=== PATIENT | female | born 1955 | race Caucasian/White ===

== ENCOUNTER 2016-11-12 10:51 | Emergency (ER) | payer OTHER ==
[~2016-11-12] VITALS: Ht 162.6 cm; Wt 70.7 kg
[2016-11-12] MEDS ORDERED: XANAX0.25 MG PO (11:01)
[2016-11-12] MEDS ORDERED: LISINOPRIL10 MG PO (11:01)
[2016-11-12] MEDS ORDERED: TRICOR145 MG PO (11:02)
[2016-11-12] MEDS ORDERED: CALCIUM500 M4 PO (11:02)
[2016-11-12] MEDS ORDERED: PREVACID30 MG PO (11:02)
[2016-11-12] MEDS ORDERED: LEXAPRO10 MG PO (11:02)
[2016-11-12] MEDS ORDERED: MULTIPLE VITAM1 EACH PO (11:03)
[2016-11-12 11:19] LABS: EOSINOPHIL (%) 0.4 % (0-5); HEMATOCRIT 43.5 % (36.0-46.0); IMMATURE GRANULOCYTE (%) 0.6 % (0.0-0.7); INSTRUMENT ABS NEUTROPHIL CT 5.3 K/uL; MCH 33.3 PG (29.0-34.0); MCHC 34.5 G/DL (30.0-36.0); MCV 96.5 FL (83-99); MEAN PLAT.VOLUME 9.4 uM^3 (9.5-12.4); MONOCYTE (%) 5.4 % (3-12); MONOCYTE COUNT 0.4 K/uL (0-0.8); NEUTROPHIL (%) 78.1 % (45-76); NEUTROPHIL COUNT 5.3 K/uL (1.8-6.4); PLATELET COUNT 195 K/uL (156-360); RBC DIS.WIDTH-CV 11.6 % (11.8-14.6); RBC DIS.WIDTH-SD 41.4 % (39-53); RED BLOOD COUNT 4.51 M/uL (3.80-5.20); WHITE BLOOD COUNT 6.8 K/uL (4.1-10.2)
[2016-11-12 11:33] LABS: CHLORIDE 106 mEq/L (99-109); POTASSIUM 3.9 mEq/L (3.7-5.4); SODIUM 142 mEq/L (136-147)
[2016-11-12 11:36] LABS: GLUCOSE 89 mg/dL (70-99)
[2016-11-12 11:37] LABS: ANION GAP 14 MEQ/L (2-14)
[2016-11-12 11:38] LABS: TOTAL BILIRUBIN 1.2 mg/dL (0.0-1.0)
[2016-11-12 11:39] LABS: ALKALINE PHOSPHATASE 69 IU/L (3-129); GFR ESTIMATE (CALCULATED) > 59 mL/min/
[2016-11-12 11:40] LABS: UREA NITROGEN (BUN) 10 mg/dL (9-23)
[2016-11-12 11:44] LABS: TROP-I INTERPRETATION NEGATIVE; TROPONIN-I < 0.01 ng/mL (0.0-0.30)
[2016-11-12 13:50] VITALS: BP 113/67
== END 2016-11-12 13:50 | disposition home or self-care (01) ==
LOC: EME 10:51
PROVIDERS: Physician Assistant
DX: F43.0 Acute stress reaction (principal)
CPT/HCPCS: 71010; 80053; 84443; 84484; 85025; 93005; 99281; 99284